=== PATIENT | female | born 1965 | race Two or more races ===

== ENCOUNTER 2024-08-25 13:39 | Outpatient (AMB) | payer MEDICAID, SELFPAY ==
[2024-08-25 13:49] VITALS: BP 111/73; PULSE 82; RESP 17; TEMP 36.7; O2SAT 97; BMI 49.9
--- NOTE | 2024-08-25 13:49 | ACNOTE_ITS ---
Vital Signs 08/25/24 13:49 Height 1.47 m Height Method Stated Weight 107.955 kg Weight Measurement Method Standing Scale BMI 49.9 BP 111/73 Blood Pressure Source Automatic Cuff Blood Pressure Location Left Upper Arm Position Sitting Respiration 17 Pulse 82 Pulse Source Monitor Temp 98.0 F Temp Source Oral Pulse Oximetry (%) 97 Oxygen Delivery Method Room Air Allergies/Meds Allergies & Medications Allergies diclofenac Allergy (Severe, Verified 08/25/24 13:49) Difficulty Breathing IBUPROFEN Allergy (Uncoded 08/25/24 13:49) Chest Pain Medication Reconciliation acetaminophen 500 mg tablet (Tylenol Extra Strength) 500 mg PO Q6H PRN 03/19/24 [History Confirmed 08/25/24] acetaminophen 500 mg capsule 500 mg PO Q6H PRN pain 1 month #120 caps 04/06/24 [Rx Confirmed 08/25/24] simvastatin 20 mg tablet 20 mg PO QPM #30 tabs 04/06/24 [Rx Confirmed 08/25/24] rosuvastatin 10 mg tablet 10 mg PO QDAY 1 month #30 tabs 05/12/24 [Rx Confirmed 08/25/24] blood sugar diagnostic (Accu-Chek Guide test strips) #100 ea 07/14/24 [Rx Confirmed 08/25/24] blood-glucose meter (Accu-Chek Guide Glucose Meter) #1 ea 07/14/24 [Rx Confirmed 08/25/24] semaglutide 3 mg tablet (Rybelsus) 3 mg PO QDAY 30 days #30 tabs 07/14/24 [Rx Confirmed 08/25/24] lancets 23 gauge (Acti-Alberto Lancets) #200 ea 07/21/24 [Rx Confirmed 08/25/24] semaglutide 7 mg tablet (Rybelsus) 7 mg PO QDAY #30 tabs 08/25/24 [Rx] MA Intake Visit Data Collection New Patient or Established: Established Patient (seen at [facility] within 3 years) Seen by Clinical Staff ONLY (RN/MA): No Pain Present Currently: No Pain scale:: 0 Pain Scale Used: Casarez-Ugarte/Numerical PCP or OBGYN visit in last 3 months: Yes Do You Feel Safe at Home: Yes Authorities Contacted: N/A Smoking Status Smoking Status: Never smoker Immunization / Flu Flu Vaccine in the Last 12 Months: No Flu Vaccine Exclusion Criteria: No Exclusion Criteria Past Medical History Past Medical History CARDIAC: Positive Hypercholesterolemia Social History SMOKING STATUS: Smoking status: Never smoker ALCOHOL: Alcohol Intake: Never Patient Portal Questionaires Social History Tobacco History Smoking Status: Never smoker Alcohol History Alcohol Intake: Never Domestic Abuse History Do You Feel Safe at Home: Yes Review of Systems Report any current symptoms Only answer those that you have currently: Past Medical History Past Medical History Have you ever been diagnosed with any of the following: Cardiology Problems Hypercholesterolemia: Yes History of Present Illness HPI Narrative [place]-speaking 59F with obesity BMI>50, HLD, S/p cholecystectomy, s/p partial hysterectomy secondary to uterine tumor removal (2005), R knee OA presents to the clinic today for follow up metformin medication for weight loss. Patient follows up with Dr Morris who is preparing patient for R. OA surgery upon weight loss. She received cortisone knee injections by Dr. Morris in the past. Patient has mild right knee pain. She continues to eat vegetables, tuna, chicken, and fruits like strawberries and blueberries. She lost a total of 11 pounds but lost her Rybelsus prescription and is requesting higher dose because she was tolerating the lower dose well. She endorses feeling tired initially with Rybelsus, but not anymore. She will be going to her PCP for ophthalmology referral. Patient denies headache, fever, chills, chest pain, palpitation, shortness of breath, dizziness, nausea, vomiting, or diarrhea. Review of Systems Review of Systems Systems Reviewed: All systems reviewed, normal except as documented Objective/Exam Narrative Physical exam: GENERAL: middle-aged female with markedly elevated BMI, Cane next to her. HEENT: NC/AT. Moist mucosa. Eyes open, symmetrical, & clear CARDIO: Heart RRR, no obvious murmurs/rubs . PULM: Room air. No noted coughing/dyspnea. Lungs CTA B/L, No wheezing, no crackles GI: Abdomen large, soft, nondistended, no masses noted, ++BS NEURO: A&Ox3. lna grossly intact, moves extremities x4 SKIN/MSK/EXT: B/L no edema. 2+ Dorsalis pedis present B/L. Assessment & Plan Diagnosis / Problem List (1) Diabetes mellitus type 2, noninsulin dependent: Status: Acute Assessment & Plan: Patient is requesting a higher dose of Rybelsus. She lost her prescription 2 weeks ago. Gained .5kg since last visit. She has not been as physically active, stopped water sports because she cannot afford gym membership. Plan: -A1c, fasting glucose, microalbumin: creatinine, CBC and CMP -Rybelsus 3gm daily increased to 7gm daily (2) Morbid obesity due to excess calories: Status: Acute Assessment & Plan: Patient failed to lose any weight since her previous clinic visit. She has stopped doing daily exercise. Continues to eat vegetables and protein. Plan: -Continue protein and vegetable diet -Recommend exercise regularly -f/up in 1.5 month Orders: Orders Ambulatory Hemoglobin A1C 08/25/24 E11.9 - Type 2 diabetes mellitus without complications Microalbumin, Ur Rnd w Creat 08/25/24 E11.9 - Type 2 diabetes mellitus without complications CBC 08/25/24 Comprehensive Metabolic Panel 08/25/24 Glucose,Fasting 08/25/24 Additional Assessment Attending note: I, Ricardo Reese MD, attest that I was physically present for the arellano portions of the service and evaluated the patient with the resident and I reviewed and discussed the case with the resident and agree with the resident's findings and plans of care as documented above. Ricardo Reese MD Physician Billing Established Patient Established Patient: E/M Level 3-CPT 11162 Office Procedures [facility] Level of Care Nursing/Assessment Patient Status: Established Patient Nursing Assessment/Reassessment: Medication Reconciliation, Update PMH in EMR and Vital Signs Coordination of Care: Complex Care and Chronic Disease 1-5, Education Complex Pt/Fam and Staff clarify orders Established Patient Charge Established Patient Point Assignment: 85 Established Patient Point Charge: EP Level 3 (80-115)
== END 2024-08-25 15:33 | disposition home or self-care (01) ==
LOC: HODAHC 13:39
PROVIDERS: Supervising Provider Internal Medicine; Visit Provider Student in an Organized Health Care Education/Training Program
DX: E11.9 Type 2 diabetes mellitus without complications (principal); Z79.84 Long term (current) use of oral hypoglycemic drugs; E66.01 Morbid (severe) obesity due to excess calories; Z68.43 Body mass index [BMI] 50.0-59.9, adult; Z71.3 Dietary counseling and surveillance
CPT/HCPCS: 99213; G0463

== ENCOUNTER 2024-10-19 13:42 | Outpatient (AMB) | payer MEDICAID, SELFPAY ==
[2024-10-19 13:57] VITALS: BP 122/80; PULSE 95; RESP 18; TEMP 36.1; O2SAT 97; BMI 48.7
--- NOTE | 2024-10-19 13:57 | PD.ORTHCLVIS ---
Vital signs 10/19/24 13:57 Height 1.47 m Height Method Stated Weight 105.29 kg Weight Measurement Method Standing Scale BMI 48.7 BP 122/80 Blood Pressure Source Automatic Cuff Blood Pressure Location Right Upper Arm Position Sitting Respiration 18 Pulse 95 Pulse Source Monitor Temp 96.9 F Temp Source Temporal Artery Scan Pulse Oximetry (%) 97 Oxygen Delivery Method Room Air Med/Allergies Allergies & Medications Allergies diclofenac Allergy (Severe, Verified 10/19/24 13:58) Difficulty Breathing IBUPROFEN Allergy (Uncoded 10/19/24 13:58) Chest Pain Medication Reconciliation acetaminophen 500 mg tablet (Tylenol Extra Strength) 500 mg PO Q6H PRN 03/19/24 [History Confirmed 10/19/24] acetaminophen 500 mg capsule 500 mg PO Q6H PRN pain 1 month #120 caps 04/06/24 [Rx Confirmed 10/19/24] simvastatin 20 mg tablet 20 mg PO QPM #30 tabs 04/06/24 [Rx Confirmed 10/19/24] rosuvastatin 10 mg tablet 10 mg PO QDAY 1 month #30 tabs 05/12/24 [Rx Confirmed 10/19/24] blood sugar diagnostic (Accu-Chek Guide test strips) #100 ea 07/14/24 [Rx Confirmed 10/19/24] blood-glucose meter (Accu-Chek Guide Glucose Meter) #1 ea 07/14/24 [Rx Confirmed 10/19/24] lancets 23 gauge (Acti-Alberto Lancets) #200 ea 07/21/24 [Rx Confirmed 10/19/24] loratadine 10 mg tablet 10 mg PO QDAY 10/19/24 [History Confirmed 10/19/24] semaglutide 0.25 mg or 0.5 mg (2 mg/3 mL) subcutaneous pen injector (Ozempic) 0.25 mg subcut QWEEK 10/19/24 [History Confirmed 10/19/24] Exam Exam Patient is in no acute distress and is cooperative with the examination today. Breathing is nonlabored. Patient has a normal mood and affect. Bilateral extremities were evaluated and demonstrates sensation intact to light touch. Palpable pedal pulses are present. No significant edema is present. Bilateral hips were examined. The patient has no pain with log roll of the hips. Internal rotation to 30 degrees and external rotation to 30 degrees is painless. Negative FADIR. Left knee was examined today. The left knee is in reasonable alignment. Range of motion from 0-120 degrees. Knee is stable to varus and valgus as well as AP translation with <5mm. Patient has a negative McMurrays. There is no pain with patellofemoral compression and no crepitus noted. The knee is nontender to palpation. The right knee was also examined. The right knee is in [varus] alignment. Range of motion from [0-115] degrees. Knee is stable to varus and valgus as well as AP translation with <5mm. Patient has a [negative] McMurrays. There is [no] pain with patellofemoral compression and [no] crepitus noted. The knee is [tender] to palpation [medially]. X-rays demonstrate complete obliteration of the joint space medially. There is varus arthritis and varus deformity Assessment and Plan Problem List (1) Pain in right knee: Status: Acute (2) Arthritis of right knee: Status: Acute Plan: Patient is a 58-year-old female with right knee pain and right knee arthritis. We discussed nonoperative and operative options.She is severe arthritis of both knees. We discussed weight loss. She would like a right knee injection today. Recommend knee cortisone injections as patient would like to proceed with conservative treatment at this time. The risks and benefits of the procedure were reviewed with the patient and patient gave verbal consent to continue with the procedure. Procedure: performed by Dr. Morris Using sterile technique the right knee was thoroughly prepped with alcohol, and approximately 1 cc of Kenalog 40 mg/mL and 4 cc of 1% lidocaine was injected into each knee without resistance into the medial tibial femoral joint space. The patient tolerated the procedure well.. Office Procedures [facility] Level of Care Nursing/Assessment Patient Status: Established Patient Nursing Assessment/Reassesment: Medication Reconciliation, Update PMH in EMR and Vital Signs Coordination of Care: Complex Care and Chronic Disease 1-5, Education Complex Pt/Fam, Consent,records obtained, informed consent, Results/Orders obtained and Staff clarify orders Special Needs: Language special needs Established Patient Charge Established Patient Point Assignment: 95 Established Patient Point Charge: EP Level 3 (80-115) Surgical Proc/IM SQ injection Major Surgical Procedure: Yes (KNEE INJECTION ) Medication Given Medication Given Medication Given: Yes Documented Dose Given: 4 Route: Infiitration Medication Given Medication Given Medication Given: Yes Documented Dose Given: 1 Route: Infiitration Office Meds Xylocaine 10 mg/mL (1 %) injection solution Performing Provider: Ronny Morris MD Performing Location: [facility] Administered by: Ronny Morris MD on 10/19/24 14:22 Dose Route Admin Location Dispensed Lot Number Expiration Date [facility] [employer] Officer 20 mL Infiltration 20 mL [id number] FRESENIUS KA triamcinolone acetonide 40 mg/mL suspension for injection Performing Provider: Ronny Morris MD Performing Location: [facility] Administered by: Ronny Morris MD on 10/19/24 14:22 Dose Route Admin Location Dispensed Lot Number Expiration Date [facility] [employer] Officer 40 mg intra-articular KNEE 1 mL [id number] 01/27/26 3711-4364-91 TEVA PARENTERAL MA Intake Visit Data Collection New Patient or Established: Established Patient (seen at [facility] within 3 years) Reason for Visit:: F/U WEIGHTLOSS Seen by Clinical Staff ONLY (RN/MA): No Verbal consent obtained for Telemed visit?: No Stores Laborer Required: Yes PCP or OBGYN visit in last 3 months: Yes Hx Now: No Do You Feel Safe at Home: Yes Authorities Contacted: N/A Questionairres Past Medical History Past Medical History Have you ever been diagnosed with any of the following: Cardiology Problems Hypercholesterolemia: Yes Subjective Visit Visit for: follow up visit and knee Immunization / Flu Flu Vaccine in the Last 12 Months: Yes Flu Vaccine Exclusion Criteria: No Exclusion Criteria and Already Received History of Present Illness Chief complaint: right knee pain Daphne is a pleasant 58-year-old female with right knee pain and right knee arthritis. She has had pain for quite a while. She is morbidly obese. She has not had any anti-inflammatories or injections. She reports that she is allergic to anti-inflammatories and had an anaphylactic reaction Pain Pain level (0-10): 10 Pain duration: ALL DAY Pain location: anterior Pain quality: sharp Pain timing: increases with activity Associated signs & symptoms: numbness (LEG) Ambulatory data Ambulatory device: cane Treatments Improvement with previous injections: No Improvement with PT: No Improvement with NSAIDS: no Review of Systems Review of Systems: All systems negative unless otherwise noted in HPI.
== END 2024-10-19 14:14 | disposition home or self-care (01) ==
PROVIDERS: Supervising Provider Orthopaedic Surgery Adult Reconstructive Orthopaedic Surgery; Visit Provider Orthopaedic Surgery Adult Reconstructive Orthopaedic Surgery
DX: M25.561 Pain in right knee (principal); M17.0 Bilateral primary osteoarthritis of knee; E78.00 Pure hypercholesterolemia, unspecified; E66.01 Morbid (severe) obesity due to excess calories; Z68.42 Body mass index [BMI] 45.0-49.9, adult
CPT/HCPCS: 20610; 99213; J3301; J3490; G0463

== ENCOUNTER 2025-02-10 13:02 | Outpatient (AMB) | payer MEDICAID, SELFPAY ==
--- NOTE | 2025-02-10 13:33 | PD.ORTHCLVIS ---
Vital signs 02/10/25 13:34 Height 1.47 m Height Method Stated Weight 103.022 kg Weight Measurement Method Standing Scale BMI 47.7 BP 126/77 Blood Pressure Source Automatic Cuff Blood Pressure Location Right Upper Arm Position Sitting Respiration 17 Pulse 78 Pulse Source Monitor Temp 98.3 F Temp Source Temporal Artery Scan Pulse Oximetry (%) 97 Oxygen Delivery Method Room Air Med/Allergies Allergies & Medications Allergies diclofenac Allergy (Severe, Verified 02/10/25 13:35) Difficulty Breathing IBUPROFEN Allergy (Uncoded 02/10/25 13:35) Chest Pain Medication Reconciliation acetaminophen 500 mg tablet (Tylenol Extra Strength) 500 mg PO Q6H PRN 03/19/24 [History Confirmed 02/10/25] acetaminophen 500 mg capsule 500 mg PO Q6H PRN pain 1 month #120 caps 04/06/24 [Rx Confirmed 02/10/25] simvastatin 20 mg tablet 20 mg PO QPM #30 tabs 04/06/24 [Rx Confirmed 02/10/25] rosuvastatin 10 mg tablet 10 mg PO QDAY 1 month #30 tabs 05/12/24 [Rx Confirmed 02/10/25] blood sugar diagnostic (Accu-Chek Guide test strips) #100 ea 07/14/24 [Rx Confirmed 02/10/25] blood-glucose meter (Accu-Chek Guide Glucose Meter) #1 ea 07/14/24 [Rx Confirmed 02/10/25] lancets 23 gauge (Acti-Alberto Lancets) #200 ea 07/21/24 [Rx Confirmed 02/10/25] loratadine 10 mg tablet 10 mg PO QDAY 10/19/24 [History Confirmed 02/10/25] semaglutide 0.25 mg or 0.5 mg (2 mg/3 mL) subcutaneous pen injector (Ozempic) 0.25 mg subcut QWEEK 10/19/24 [History Confirmed 02/10/25] Exam Exam Patient is in no acute distress and is cooperative with the examination today. Breathing is nonlabored. Patient has a normal mood and affect. Bilateral extremities were evaluated and demonstrates sensation intact to light touch. Palpable pedal pulses are present. No significant edema is present. Bilateral hips were examined. The patient has no pain with log roll of the hips. Internal rotation to 30 degrees and external rotation to 30 degrees is painless. Negative FADIR. Left knee was examined today. The left knee is in reasonable alignment. Range of motion from 0-120 degrees. Knee is stable to varus and valgus as well as AP translation with <5mm. Patient has a negative McMurrays. There is no pain with patellofemoral compression and no crepitus noted. The knee is nontender to palpation. The right knee was also examined. The right knee is in [varus] alignment. Range of motion from [0-115] degrees. Knee is stable to varus and valgus as well as AP translation with <5mm. Patient has a [negative] McMurrays. There is [no] pain with patellofemoral compression and [no] crepitus noted. The knee is [tender] to palpation [medially]. X-rays demonstrate complete obliteration of the joint space medially. There is varus arthritis and varus deformity Assessment and Plan Problem List (1) Pain in right knee: Status: Acute (2) Arthritis of right knee: Status: Acute Plan: Patient is a 58-year-old female with right knee pain and right knee arthritis. We discussed nonoperative and operative options.She is severe arthritis of both knees. We discussed weight loss. She would like a right knee injection today. Recommend knee cortisone injections as patient would like to proceed with conservative treatment at this time. The risks and benefits of the procedure were reviewed with the patient and patient gave verbal consent to continue with the procedure. Procedure: performed by Dr. Morris Using sterile technique the right knee was thoroughly prepped with alcohol, and approximately 1 cc of Kenalog 40 mg/mL and 4 cc of 1% lidocaine was injected into each knee without resistance into the medial tibial femoral joint space. The patient tolerated the procedure well.. Office Procedures GNS Level of Care Nursing/Assessment Patient Status: Established Patient Nursing Assessment/Reassesment: Medication Reconciliation, Update PMH in EMR and Vital Signs Coordination of Care: Complex Care and Chronic Disease 1-5, Education Complex Pt/Fam, Consent,records obtained, informed consent, Results/Orders obtained and Staff clarify orders Special Needs: Language special needs (SWEDISH ) Established Patient Charge Established Patient Point Assignment: 95 Established Patient Point Charge: EP Level 3 (80-115) Surgical Proc/IM SQ injection Major Surgical Procedure: Yes (KNEE INJECTION) Medication Given Medication Given Medication Given: Yes Documented Dose Given: 4 Route: Infiitration Medication Given Medication Given Medication Given: Yes Documented Dose Given: 1 Route: Infiitration Office Meds Xylocaine 10 mg/mL (1 %) injection solution Performing Provider: Ronny Morris MD Performing Location: [facility] Administered by: Ronny Morris MD on 02/10/25 14:22 Dose Route Admin Location Dispensed Lot Number Expiration Date [place] Furn[employer] Helper 20 mL Infiltration 20 mL [id number] 03/28/28 16629-692-66 FR[facility] [facility] triamcinolone acetonide 40 mg/mL suspension for injection Performing Provider: Ronny Morris MD Performing Location: [facility] Administered by: Ronny Morris MD on 02/10/25 14:22 Dose Route Admin Location Dispensed Lot Number Expiration Date [facility] Furnace Helper 40 mg intra-articular KNEE 1 mL [id number] 09/27/26 4804-1579-53 TEVA PARENTERAL MA Intake Visit Data Collection New Patient or Established: Established Patient (seen at [facility] within 3 years) Reason for Visit:: F/U WEIGHTLOSS Seen by Clinical Staff ONLY (RN/MA): No Verbal consent obtained for Telemed visit?: No Road Roller Operator Hot Mix Required: Yes PCP or OBGYN visit in last 3 months: Yes Hx Now: No Do You Feel Safe at Home: Yes Authorities Contacted: N/A Questionairres Past Medical History Past Medical History Have you ever been diagnosed with any of the following: Cardiology Problems Hypercholesterolemia: Yes Subjective Visit Visit for: follow up visit and knee Immunization / Flu Flu Vaccine in the Last 12 Months: Yes Flu Vaccine Exclusion Criteria: No Exclusion Criteria and Already Received History of Present Illness Chief complaint: right knee pain Daphne is a pleasant 58-year-old female with right knee pain and right knee arthritis. She has had pain for quite a while. She is morbidly obese. She has tried cortisone injections. She reports that she is allergic to anti-inflammatories and had an anaphylactic reaction Pain Pain level (0-10): 10 Pain duration: ALL DAY Pain location: anterior Pain quality: sharp Pain timing: increases with activity Associated signs & symptoms: numbness (LEG) Ambulatory data Ambulatory device: cane Treatments Improvement with previous injections: No Improvement with PT: No Improvement with NSAIDS: no Review of Systems Review of Systems: All systems negative unless otherwise noted in HPI.
[2025-02-10 13:34] VITALS: BP 126/77; PULSE 78; RESP 17; TEMP 36.8; O2SAT 97; BMI 47.7
== END 2025-02-10 13:43 | disposition home or self-care (01) ==
LOC: HODSRG 13:02
PROVIDERS: PCP Student in an Organized Health Care Education/Training Program; Referring Provider Student in an Organized Health Care Education/Training Program; Supervising Provider Orthopaedic Surgery Adult Reconstructive Orthopaedic Surgery; Visit Provider Orthopaedic Surgery Adult Reconstructive Orthopaedic Surgery
DX: M25.561 Pain in right knee (principal); M17.0 Bilateral primary osteoarthritis of knee; E78.00 Pure hypercholesterolemia, unspecified; E66.01 Morbid (severe) obesity due to excess calories; Z68.42 Body mass index [BMI] 45.0-49.9, adult
CPT/HCPCS: 20610; 99213; J3301; J3490; G0463

== ENCOUNTER 2025-04-06 09:46 | Emergency (ER) | payer MEDICAID, SELFPAY ==
[2025-04-06 10:16] VITALS: BP 123/85; PULSE 73; RESP 18; TEMP 36.8; O2SAT 98; BMI 48.4
--- NOTE | 2025-04-06 10:58 | XR_ITS ---
Examination: Ribs, left, with PA chest, 5 views Technique: Chest PA, RIBS AP, RPO, LPO, AP coned lower ribs 5 views Exam date and time: April 06, 2025 1123 hours INDICATIONS: Left-sided rib pain beginning 2 days ago no trauma Findings: Normal heart size No pneumothorax. Moderate osteopenia No acute rib fractures No cortical bone destruction involving the ribs IMPRESSION: No active disease in the chest No acute rib fractures
--- NOTE | 2025-04-06 11:03 | EDNOTE_ITS ---
ED General RME/HPI General Chief complaint: General Adult/Misc Complain Stated complaint: Left rib pain X 3 days Time Seen by Provider: 04/06/25 10:10 Source: patient Arrival date/time: 04/06/25 09:46 . This is a 59-year-old female who presents to the emergency department complaints of left rib pain. Patient states she had a stumble however did not fall and hit the edge of a table on the left side of her rib. She has had intermittent pain for the last 3 days. She is requesting x-ray to rule out fracture. Has not taken any medication at home for her symptoms. No other symptoms reported no shortness of breath no chest pain. Mode of arrival: ambulatory Related Data Home Medications ?Medication ?Instructions ?Recorded ?Confirmed acetaminophen 500 mg tablet 500 mg PO Q6H PRN 03/19/24 02/10/25 (Tylenol Extra Strength) loratadine 10 mg tablet 10 mg PO QDAY 10/19/2402/10 semaglutide 0.25 mg or 0.5 mg (2 0.25 mg subcut QWEEK 10/19/24 02/10/25 mg/3 mL) subcutaneous pen injector (Ozempic) Previous Rx's ?Medication ?Instructions ?Recorded acetaminophen 500 mg capsule 500 mg PO Q6H PRN pain 1 month 04/06/24 #120 caps simvastatin 20 mg tablet 20 mg PO QPM #30 tabs rosuvastatin 10 mg tablet 10 mg PO QDAY 1 month #30 ta bs 05/12/24 blood sugar diagnostic (Accu-Chek #100 ea 07/14/24 Guide test strips) blood-glucose meter (Accu-Chek #1 ea 07/14/24 Guide Glucose Meter) lancets 23 gauge (Acti-Alberto #200 ea 07/21/24 Lancets) Allergies Allergy/AdvReac Type Severity Reaction Status Date / Time diclofenac Allergy Severe Difficulty Verified 04/06/25 09:53 Breathing IBUPROFEN Allergy Chest Pain Uncoded 04/06/25 09:53 Review of Systems Review of Systems Systems Reviewed: All systems reviewed, normal except as documented Narrative Review of Systems: Gen: No fever, no chills, no weight loss EYES: No discharge, no visual changes, no pain HEENT: No ear pain, no congestion, no sore throat PULM: No shortness of breath, no cough, no congestion, + left rib pain CV: No chest pain, no dyspnea on exertion, no palpitations GI: No nausea, no vomiting, no diarrhea, no pain, no constipation : No frequency, no urgency, no dysuria Musc/skel: No joint pain, no back pain Skin: No rash Psyc: No hallucinations, no depression Heme/Lymph: No easy bleeding or bruising tendencies Neuro: No weakness, no headache ED Exam Narrative Physical exam: General: Sittiing in Exam table in no acute distress, answering questions appropriately HENT: normocephalic, atraumatic, EOMI, PERRLA, moist mucous membranes Chest: chest wall is nontender, _left lateral rib mid tenderness palpation. No crepitus. Cardiac: regular rate and rhythm, normal S1 and S2, no murmurs, rubs, or gallops, capillary refill ?2 seconds Pulmonary: clear to auscultation bilaterally, no wheezing, crackles, or rhonchi Abdominal: active bowel sounds, soft, nontender, nondistended Neuro: A&OX3, CN II-XII intact, sensation grossly intact bilaterally in UE and LE. Skin: no rashes, no ecchymosis Ext: no lower extremity edema Course Quality Measures none Orders Category Date Time Status XR ribs LT min 3V w CXR1V Stat Exams 04/06/25 10:58 Completed Vital Signs Vital signs: Vital Signs Temperature 98.2 F 04/06/25 10:16 Pulse Rate 73 04/06/25 10:16 Respiratory Rate 18 04/06/25 10:16 Blood Pressure 123/85 H 04/06/25 10:16 Pulse Oximetry (%) 98 04/06/25 10:16 Oxygen Delivery Method Room Air 04/06/25 10:16 Discharge Plan Plan Patient Disposition: HOME (Self Care) Patient condition on transfer: Stable Prescriptions/Referrals Prescriptions/Med Rec: No Action simvastatin 20 mg tablet 20 mg PO QPM Qty: 30 2RF acetaminophen 500 mg capsule 500 mg PO Q6H PRN (Reason: pain) 30 Days Qty: 120 2RF rosuvastatin 10 mg tablet 10 mg PO QDAY 30 Days Qty: 30 5RF Ozempic 0.25 mg or 0.5 mg (2 mg/3 mL) pen injector 0.25 mg subcut QWEEK Rx Instructions: for 4 weeks loratadine 10 mg tablet 10 mg PO QDAY acetaminophen [Tylenol Extra Strength] 500 mg tablet 500 mg PO Q6H PRN (DME) blood-glucose meter [Accu-Chek Guide Glucose Meter] [facility] [place] See Rx Instructions .Route Qty: 1 4RF Rx Instructions: As directed once daily (DME) Accu-Chek Guide test strips Strip See Rx Instructions .Route Qty: 100 4RF Rx Instructions: As directed (DME) Acti-Alberto Lancets 23 gauge misc See Rx Instructions .Route Qty: 200 3RF Rx Instructions: As directed once daily Referrals: Danielle Power FNP-C [Primary Care Provider] - In 1 week Problem List Clinical Impression: Contusion of rib on left side Patient/Caregiver Discharge Instructions Discharge Activity: activity as tolerated Education Materials: ED Contusion, Rib Additional Instructions: X-ray demonstrates no fracture. - Make sure you follow-up with your primary doctor. - Take [id number] Tylenol ibuprofen as directed for pain. Return to the emergency department with any worsening symptoms any condition. Print Language: Albanian Stand Alone Forms: [employer] Info., Patient Portal Info Letter LANIE/STACY Supervising Physician LANIE/STACY Supervising Physician: Dr. Davey [facility] Narrative [facility] hospital course: 59-year-old female here for complaints of left mid rib pain. No signs of distress. No hypoxia. Vital signs stable. Patient is worried requesting x-ray. To rule out fracture reports she will be doing exercise and swimming in the pool and has had pain once to reassure there is no fracture on the rib. X-ray was obtained no fractures to ribs. Most likely rib contusion. Advised to follow-up with PCP return if any worsening symptoms. Clinical Information Provided by none Medical Records Reviewed [facility] Meds/Rx Considered, not Ordered Describe details: Pain medication Labs/Rad/Tests considered, not Ordered Describe details: Examination: Ribs, left, with PA chest, 5 views Technique: Chest PA, RIBS AP, RPO, LPO, AP coned lower ribs 5 views Exam date and time: April 06, 2025 1123 hours INDICATIONS: Left-sided rib pain beginning 2 days ago no trauma Findings: Normal heart size No pneumothorax. Moderate osteopenia No acute rib fractures No cortical bone destruction involving the ribs IMPRESSION: No active disease in the chest No acute rib fractures Chronic Illness/Social Conditions which may negatively complicate care or outcome(s)-explain: None or not applicable EKG EKG not done Lab Interpretation Labs: none Imaging Imaging interpretation: interpreted by me Provider imaging interpretation(s): Examination: Ribs, left, with PA chest, 5 views Technique: Chest PA, RIBS AP, RPO, LPO, AP coned lower ribs 5 views Exam date and time: April 06, 2025 1123 hours INDICATIONS: Left-sided rib pain beginning 2 days ago no trauma Findings: Normal heart size No pneumothorax. Moderate osteopenia No acute rib fractures No cortical bone destruction involving the ribs IMPRESSION: No active disease in the chest No acute rib fractures Radiology reports / interpretation(s): Examination: Ribs, left, with PA chest, 5 views Technique: Chest PA, RIBS AP, RPO, LPO, AP coned lower ribs 5 views Exam date and time: April 06, 2025 1123 hours INDICATIONS: Left-sided rib pain beginning 2 days ago no trauma Findings: Normal heart size No pneumothorax. Moderate osteopenia No acute rib fractures No cortical bone destruction involving the ribs IMPRESSION: No active disease in the chest No acute rib fractures Medication Administration(s) none Diagnosis Differential diagnosis: Rib contusion, chest contusion, rib pain, bruising. Most likely dx, and/or detailed dx discussion: Rib contusion Dispositon Disposition: Discharge Home
== END 2025-04-06 12:44 | disposition home or self-care (01) ==
PROVIDERS: Emergency Provider Emergency Medicine
DX: S20.212A Contusion of left front wall of thorax, initial encounter (principal); X58.XXXA Exposure to other specified factors, initial encounter
CPT/HCPCS: 71101; 99283

== ENCOUNTER → 2025-05-11 | Outpatient (CLI) | payer MEDICAID, SELFPAY ==
--- NOTE | 2025-05-11 09:45 | XR_ITS ---
Examination: Screening digital mammography, bilateral Computer aided detection 3-D breast Tomosynthesis, bilateral Date and time of exam: May 11, 2025 0923 hours Compared to mammograms dating to January 03, 2016 Indication: Screening Technique: Nonmagnified MLO, CC views of the breasts to been obtained, reconstructed from 3-D Tomosynthesis images. R2 computer aided detection program utilized for evaluation of suspicious masses and/or abnormal calcifications. 3-D Tomosynthesis images obtained. Findings: Scattered areas of fibroglandular density Benign calcifications. No interval suspicious masses Impression: BI-RADS category II: Benign Findings. Recommend 1 year follow-up mammogram.
== END | disposition home or self-care (01) ==
DX: Z12.31 Encounter for screening mammogram for malignant neoplasm of breast (principal); R92.323 Mammographic fibroglandular density, bilateral breasts; R92.1 Mammographic calcification found on diagnostic imaging of breast
CPT/HCPCS: 77063; 77067

== ENCOUNTER 2025-06-28 13:48 | Outpatient (AMB) | payer MEDICAID, SELFPAY ==
--- NOTE | 2025-06-28 14:02 | PD.ORTHCLVIS ---
Vital signs 06/28/25 14:03 Height 1.52 m Height Method Stated Weight 96.275 kg Weight Measurement Method Standing Scale BMI 41.4 BP 115/72 Blood Pressure Source Automatic Cuff Blood Pressure Location Left Upper Arm Position Sitting Respiration 19 Pulse 84 Pulse Source Monitor Temp 97.7 F Temp Source Temporal Artery Scan Pulse Oximetry (%) 96 Oxygen Delivery Method Room Air Med/Allergies Allergies & Medications Allergies diclofenac Allergy (Severe, Verified 06/28/25 14:04) Difficulty Breathing IBUPROFEN Allergy (Uncoded 06/28/25 14:04) Chest Pain Medication Reconciliation acetaminophen 500 mg tablet (Tylenol Extra Strength) 500 mg PO Q6H PRN 03/19/24 [History Confirmed 06/28/25] acetaminophen 500 mg capsule 500 mg PO Q6H PRN pain 1 month #120 caps 04/06/24 [Rx Confirmed 06/28/25] simvastatin 20 mg tablet 20 mg PO QPM #30 tabs 04/06/24 [Rx Confirmed 06/28/25] rosuvastatin 10 mg tablet 10 mg PO QDAY 1 month #30 tabs 05/12/24 [Rx Confirmed 06/28/25] blood sugar diagnostic (Accu-Chek Guide test strips) #100 ea 07/14/24 [Rx Confirmed 06/28/25] blood-glucose meter (Accu-Chek Guide Glucose Meter) #1 ea 07/14/24 [Rx Confirmed 06/28/25] lancets 23 gauge (Acti-Alberto Lancets) #200 ea 07/21/24 [Rx Confirmed 06/28/25] loratadine 10 mg tablet 10 mg PO QDAY 10/19/24 [History Confirmed 06/28/25] semaglutide 0.25 mg or 0.5 mg (2 mg/3 mL) subcutaneous pen injector (Ozempic) 0.25 mg subcut QWEEK 10/19/24 [History Confirmed 06/28/25] Exam Exam Patient is in no acute distress and is cooperative with the examination today. Breathing is nonlabored. Patient has a normal mood and affect. Bilateral extremities were evaluated and demonstrates sensation intact to light touch. Palpable pedal pulses are present. No significant edema is present. Bilateral hips were examined. The patient has no pain with log roll of the hips. Internal rotation to 30 degrees and external rotation to 30 degrees is painless. Negative FADIR. Left knee was examined today. The left knee is in reasonable alignment. Range of motion from 0-120 degrees. Knee is stable to varus and valgus as well as AP translation with <5mm. Patient has a negative McMurrays. There is no pain with patellofemoral compression and no crepitus noted. The knee is nontender to palpation. The right knee was also examined. The right knee is in [varus] alignment. Range of motion from [0-115] degrees. Knee is stable to varus and valgus as well as AP translation with <5mm. Patient has a [negative] McMurrays. There is [no] pain with patellofemoral compression and [no] crepitus noted. The knee is [tender] to palpation [medially]. X-rays demonstrate complete obliteration of the joint space medially. There is varus arthritis and varus deformity Assessment and Plan Problem List (1) Pain in right knee: Status: Acute (2) Arthritis of right knee: Status: Acute Plan: Patient is a 58-year-old female with right knee pain and right knee arthritis. We discussed nonoperative and operative options.She is severe arthritis of both knees. We discussed weight loss. She would like a right knee injection today. Recommend knee cortisone injection as patient would like to proceed with conservative treatment at this time. The risks and benefits of the procedure were reviewed with the patient and patient gave verbal consent to continue with the procedure. Procedure: performed by Dr. Morris Using sterile technique the Right knee was thoroughly prepped with alcohol, and approximately 1 cc of Depo-Medrol 80mg/mL and 4 cc of 0.2% ropivacaine was injected without resistance into the medial tibial femoral joint space. The patient tolerated the procedure. Office Procedures GNS Level of Care Nursing/Assessment Patient Status: Established Patient Nursing Assessment/Reassesment: Medication Reconciliation, Update PMH in EMR and Vital Signs Coordination of Care: Complex Care and Chronic Disease 1-5, Education Complex Pt/Fam, Consent,records obtained, informed consent, Lab and Imaging orders, Results/Orders obtained and Staff clarify orders Special Needs: Language special needs Established Patient Charge Established Patient Point Assignment: 110 Established Patient Point Charge: EP Level 3 (80-115) Surgical Proc/IM SQ injection Minor Surgical Procedure: Yes Medication Given Medication Given Medication Given: Yes Documented Dose Given: 1 Route: Infiitration Medication Given Medication Given Medication Given: Yes Documented Dose Given: 4 Route: Infiitration Office Meds methylprednisolone acetate 80 mg/mL suspension for injection Performing Provider: Ronny Morris MD Performing Location: [facility] Administered by: Ronny Morris MD on 06/28/25 14:16 Dose Route Admin Location Dispensed Lot Number Expiration Date Package NDC [employer] Supervisor 80 mg intra-articular 1 mL [id number] [employer] ropivacaine (PF) 2 mg/mL (0.2 %) injection solution Performing Provider: Ronny Morris MD Performing Location: [facility] Administered by: Ronny Morris MD on 06/28/25 14:16 Dose Route Admin Location Dispensed Lot Number Expiration Date Package NDC [employer] Floor Pan Placing Supervisor 20 mL Infiltration 20 mL [id number] [facility] Intake Visit Data Collection New Patient or Established: Established Patient (seen at [facility] within 3 years) Reason for Visit:: 3MTH L KNEE INJ Seen by Clinical Staff ONLY (RN/MA): No Verbal consent obtained for Telemed visit?: No Third Loader Required: Yes PCP or OBGYN visit in last 3 months: Yes Hx Now: No Do You Feel Safe at Home: Yes Authorities Contacted: N/A Questionairres Past Medical History Past Medical History Have you ever been diagnosed with any of the following: Cardiology Problems Hypercholesterolemia: Yes Subjective Visit Visit for: follow up visit, knee and injections Immunization / Flu Flu Vaccine in the Last 12 Months: Yes Flu Vaccine Exclusion Criteria: No Exclusion Criteria and Already Received History of Present Illness Chief complaint: right knee pain Daphne is a pleasant 58-year-old female with right knee pain and right knee arthritis. She has had pain for quite a while. She is morbidly obese. She has tried cortisone injections. She reports that she is allergic to anti-inflammatories and had an anaphylactic reaction. The last injection lasted for approximately 3 months. Personal History Red flag PMH: BMI BMI Counceling provided: Yes Pain Pain level (0-10): 10 Pain duration: ALL DAY Pain location: anterior Pain quality: sharp Pain timing: increases with activity Associated signs & symptoms: numbness (LEG) Ambulatory data Ambulatory device: cane Treatments Improvement with previous injections: No Improvement with PT: No Improvement with NSAIDS: no Review of Systems Review of Systems: All systems negative unless otherwise noted in HPI.
[2025-06-28 14:03] VITALS: BP 115/72; PULSE 84; RESP 19; TEMP 36.5; O2SAT 96; BMI 41.4
== END 2025-06-28 14:24 | disposition home or self-care (01) ==
LOC: HODSRG 13:48
PROVIDERS: PCP Student in an Organized Health Care Education/Training Program; Referring Provider Student in an Organized Health Care Education/Training Program; Supervising Provider Orthopaedic Surgery Adult Reconstructive Orthopaedic Surgery; Visit Provider Orthopaedic Surgery Adult Reconstructive Orthopaedic Surgery
DX: M25.561 Pain in right knee (principal); M17.11 Unilateral primary osteoarthritis, right knee; E78.00 Pure hypercholesterolemia, unspecified; E66.01 Morbid (severe) obesity due to excess calories; Z71.3 Dietary counseling and surveillance; Z68.41 Body mass index [BMI] 40.0-44.9, adult
CPT/HCPCS: 20610; 99213; J1010; J2795; G0463

== ENCOUNTER 2025-07-14 09:31 | Emergency (ER) | payer MEDICAID, SELFPAY ==
[2025-07-14 09:45] VITALS: BP 149/76; PULSE 71; RESP 18; TEMP 36.4; O2SAT 98; BMI 46.3
--- NOTE | 2025-07-14 09:58 | XR_ITS ---
Examination: Right elbow 3 views Technique: Elbow AP, oblique, lateral 3 views Exam date and time: July 14, 2025, 0958 hours INDICATIONS: Patient fell today with injury to the elbow, elbow pain FINDINGS: Acute comminuted fractures of radial head and neck Large elbow effusion No foreign body IMPRESSION: Acute comminuted fractures of radial head and neck, angulation at the radial neck fracture site
--- NOTE | 2025-07-14 09:58 | XR_ITS ---
Examination: Humerus 2 views right Technique: Humerus, AP lateral 2 views Date and time of exam: July 14, 2025, 0958 hours INDICATIONS: Patient fell today with injury to the arm, arm pain FINDINGS: No shoulder fracture or dislocation Shaft of the humerus intact IMPRESSION: Humerus appears intact
--- NOTE | 2025-07-14 09:58 | XR_ITS ---
Examination: Shoulder, right, 3 views Technique: Shoulder AP internal rotation, AP external rotation, Y view shoulder, 3 views Exam date and time : July 14, 2025, 0958 hours INDICATIONS: Patient fell today with injury to shoulder, shoulder pain. FINDINGS: Moderate Glenohumeral joint No shoulder fracture or dislocation Calcific tendinitis. Moderate osteoarthritis acromioclavicular joint IMPRESSION: No shoulder fracture or dislocation
--- NOTE | 2025-07-14 11:28 | PD.EDUPEX ---
Upper Extremity Injury RME/HPI General Chief Complaint: Extremity Injury, Upper Stated Complaint: R SHOULDER INJURY POST FALL TODAY Time Seen by Provider: 07/14/25 09:40 Arrival date/time: 07/14/25 09:31 60-year-old female presents to the emergency department today for complaints of right upper arm pain after fall today patient reports that it was a trip and fall reports no head or neck injury reports no dizziness prior to the fall Limitations: no limitations Related Data Home Medications ?Medication ?Instructions ?Recorded ?Confirmed acetaminophen 500 mg tablet 500 mg PO Q6H PRN 03/19/24 06/28/25 (Tylenol Extra Strength) loratadine 10 mg tablet 10 mg PO QDAY 10/19/24 06/28/25 semaglutide 0.25 mg or 0.5 mg (2 0.25 mg subcut QWEEK 10/19/24 06/28/25 mg/3 mL) subcutaneous pen injector (Ozempic) Previous Rx's ?Medication ?Instructions ?Recorded acetaminophen 500 mg capsule 500 mg PO Q6H PRN pain 1 month 04/06/24 #120 caps simvastatin 20 mg tablet 20 mg PO QPM #30 tabs 04/06/24 rosuvastatin 10 mg tablet 10 mg PO QDAY 1 month #30 tabs 05/12/24 blood sugar diagnostic (Accu-Chek #100 ea 07/14/24 Guide test strips) blood-glucose meter (Accu-Chek #1 ea 07/14/24 Guide Glucose Meter) lancets 23 gauge (Acti-Alberto #200 ea 07/21/24 Lancets) hydrocodone 5 mg-acetaminophen 325 1 tab PO BID PRN pain #10 tabs 07/14/25 mg tablet Allergies Allergy/AdvReac Type Severity Reaction Status Date / Time diclofenac Allergy Severe Difficulty Verified 07/14/25 09:33 Breathing IBUPROFEN Allergy Chest Pain Uncoded 07/14/25 09:33 Review of Systems Review of Systems Systems Reviewed: All systems reviewed, normal except as documented Constitutional Constitutional: Reports system reviewed and no additional complaints, except as documented, Denies fever(s) and Denies headache(s) Eyes Eyes: Reports system reviewed and no additional complaints, except as documented and Denies blurry vision ENT Ears, Nose, Mouth, and Throat: Reports system reviewed and no additional complaints, except as documented, Denies headache(s), Denies nasal congestion and Denies nasal discharge Cardiovascular Cardiovascular: Reports system reviewed and no additional complaints, except as documented, Denies chest pain and Denies dyspnea Respiratory Respiratory: Reports system reviewed and no additional complaints, except as documented, Denies chest congestion, Denies cough and Denies dyspnea Gastrointestinal Gastrointestinal: Reports system reviewed and no additional complaints, except as documented and Denies abdominal pain Musculoskeletal Musculoskeletal: Reports system reviewed and no additional complaints, except as documented, Reports arthralgias, Denies deformity, Denies numbness, Reports stiffness and Denies tingling Integumentary/Breasts Skin/Breast: Reports system reviewed and no additional complaints, except as documented and Denies rash Neurologic Neurologic: Reports system reviewed and no additional complaints, except as documented, Reports as per HPI, Denies headache(s), Denies numbness and Denies tingling Past Medical History Past Medical History CARDIAC: Positive Hypercholesterolemia Social History SMOKING STATUS: Never smoker SUBSTANCE USE: does not use ED Exam General Limitations: Present no limitations General appearance: Present alert and in no apparent distress Head Head exam: Present atraumatic, normocephalic and normal inspection Eye Eye exam: Present normal appearance, PERRL and EOMI; Absent conjunctival injection ENT ENT exam: Present normal exam, normal oropharynx and mucous membranes moist Neck Neck exam: Present normal inspection, full ROM and trachea midline Chest Chest inspection: Present normal inspection and symmetric chest wall rise Respiratory Respiratory exam: Present normal lung sounds bilaterally Cardiovascular Cardiovascular exam: Present regular rate, normal rhythm and normal heart sounds Abdominal Exam Abdominal exam: Present soft and normal bowel sounds Extremities Exam Extremities exam: Present tenderness, normal capillary refill and joint swelling (Mild swelling right elbow) Back Exam Back exam: Present normal inspection and full ROM Neurological Exam Neurological exam: Present alert, oriented X3 and CN II-XII intact Psychiatric Psychiatric exam: Present normal affect and normal mood Skin Skin exam: Present warm, dry, intact and normal color Course Quality Measures none Orders Category Date Time Status Splint / Immobilizer STAT Care 07/14/25 11:30 Completed XR elbow comp RT min 3V Stat Exams 07/14/25 09:58 Completed XR humerus RT min 2V Stat Exams 07/14/25 09:58 Completed XR shoulder RT min 2V Stat Exams 07/14/25 09:58 Completed Vital Signs Vital signs: Vital Signs Temperature 97.5 F 07/14/25 09:45 Pulse Rate 71 07/14/25 09:45 Respiratory Rate 18 07/14/25 09:45 Blood Pressure 149/76 H 07/14/25 09:45 Pulse Oximetry (%) 98 07/14/25 09:45 Oxygen Delivery Method Room Air 07/14/25 09:45 O2 saturation 98% room air with normal limits PROCEDURES: Splint Fabrication: Clinician Made Type: Posterior Elbow Reason for Splint: Optimal Positioning, Pain Management and Minimize Deformities Circulation Distal to Splint: Yes Movement Distal to Splint: Yes Senation Distal to Splint: Yes Tolerance: Tolerates Well Extremity Injury MDM Narrative MDM Narrative:: 60-year-old female presents to the emergency department today for complaints of right upper arm pain after fall today patient reports that it was a trip and fall reports no head or neck injury reports no dizziness prior to the fall On exam patient has tenderness right upper arm mostly in the right elbow no deformity noted Imaging of the right arm obtained patient has fracture Acute comminuted fractures of radial head and neck, angulation at the radial neck fracture site Has patient has no bruising has mild swelling no deformity noted Patient placed in a posterior elbow splint and a sling Patient given pain medication Explained to the patient the importance of following up with orthopedics to soon as possible for further evaluation and possible treatment. Patient data External records reviewed:: [facility] previous records Clinical information provided by:: patient Social determinants that could affect healthcare access:: none Patient has the following chronic illnesses:: History How is presenting disease/condition affected by chronic disease/condition?: uneffected by Evaluation data The following diagnostics were reviewed and interpreted by me:: radiology exam(s) Lab and/or radiology exams considered but not ordered:: Radiology obtained Interpretation Summary: Reviewed by me Medications / Prescriptions Medications or Prescriptions considered but not ordered:: Given Medication administrations:: Given Consultations Consultation(s) initiated? (list below): No Diagnosis Upper Extremity Injury Differential Diagnosis: dislocation of shoulder, fracture of humerus and other Most likely diagnosis given after review of the tests above:: Level fracture Admission Indicated Admission indicated?: not indicated Admission Request Was there a request for admission?: No Disposition Plan Disposition Plan: Discharge Discharge Attestation Discharge Attestation: The patient and all family members were given an opportunity to ask questions and understood the discharge instructions. Discharge instructions specifically effects, indications for sooner follow up or return to the emergency department, and the expected course of current diagnosis. Patient condition: Stable Discharge Plan Plan Patient Disposition: HOME (Self Care) Discharge Disposition comment: Stable Prescriptions/Referrals Prescriptions/Med Rec: New hydrocodone-acetaminophen 5-325 mg tablet 1 tab PO BID MDD 10 PRN (Reason: pain) Qty: 10 0RF No Action simvastatin 20 mg tablet 20 mg PO QPM Qty: 30 2RF acetaminophen 500 mg capsule 500 mg PO Q6H PRN (Reason: pain) 30 Days Qty: 120 2RF rosuvastatin 10 mg tablet 10 mg PO QDAY 30 Days Qty: 30 5RF Ozempic 0.25 mg or 0.5 mg (2 mg/3 mL) pen injector 0.25 mg subcut QWEEK Rx Instructions: for 4 weeks loratadine 10 mg tablet 10 mg PO QDAY acetaminophen [Tylenol Extra Strength] 500 mg tablet 500 mg PO Q6H PRN (DME) blood-glucose meter [Accu-Chek Guide Glucose Meter] Misc See Rx Instructions .Route Qty: 1 4RF Rx Instructions: As directed once daily (DME) Accu-Chek Guide test strips Strip See Rx Instructions .Route Qty: 100 4RF Rx Instructions: As directed (DME) Acti-Alberto Lancets 23 gauge misc See Rx Instructions .Route Qty: 200 3RF Rx Instructions: As directed once daily Referrals: Lety ([employer]),DORIS Polo [Primary Care Provider, Emergency Medicine] - In 1 week Problem List Clinical Impression: Closed fracture of right elbow Patient/Caregiver Discharge Instructions Education Materials: ED Elbow Fracture Additional Instructions: Please follow up with your primary care doctor in the next 24-48hrs for any worsening symptoms return here immediately You must follow with your PCP in order get a referral to orthopedist for worsening symptoms or concerns return immediately Print Language: Czech Stand Alone Forms: Marcela Award Info., Patient Portal Info Letter PA/PLATE MAKER Supervising Physician LANIE/STACY Supervising Physician: Dr. machuca
== END 2025-07-14 12:52 | disposition home or self-care (01) ==
PROVIDERS: PCP Nurse Practitioner Primary Care
DX: S42.461A Displaced fracture of medial condyle of right humerus, initial encounter for closed fracture (principal); S42.441A Displaced fracture (avulsion) of medial epicondyle of right humerus, initial encounter for closed fracture; W01.0XXA Fall on same level from slipping, tripping and stumbling without subsequent striking against object, initial encounter
CPT/HCPCS: 29105; 73030; 73060; 73080; 99283

== ENCOUNTER 2025-07-19 17:54 | Emergency (ER) | payer MEDICAID, SELFPAY ==
[2025-07-19 17:55] VITALS: BMI 43.1
[2025-07-19 18:12] VITALS: BP 157/80; PULSE 90; RESP 18; TEMP 36.8; O2SAT 96
--- NOTE | 2025-07-19 18:37 | EDNOTE_ITS ---
Upper Extremity Injury RME/HPI General Chief Complaint: Extremity Injury, Upper Stated Complaint: RT ELBOW PAIN Time Seen by Provider: 07/19/25 18:32 Arrival date/time: 07/19/25 17:54 60F with no significant PMH presents to ED with R elbow splint out of place that was done 1 week ago for recent diagnosis here for elbow fx. Patient has outpatient ortho appt already. Limitations: no limitations Related Data Home Medications ?Medication ?Instructions ?Recorded ?Confirmed acetaminophen 500 mg tablet 500 mg PO Q6H PRN 03/19/24 06/28/25 (Tylenol Extra Strength) loratadine 10 mg tablet 10 mg PO QDAY 10/19/2406/28 semaglutide 0.25 mg or 0.5 mg (2 0.25 mg subcut QWEEK 10/19/24 06/28/25 mg/3 mL) subcutaneous pen injector (Ozempic) Previous Rx's ?Medication ?Instructions ?Recorded acetaminophen 500 mg capsule 500 mg PO Q6H PRN pain 1 month 04/06/24 #120 caps simvastatin 20 mg tablet 20 mg PO QPM #30 tabs rosuvastatin 10 mg tablet 10 mg PO QDAY 1 month #30 ta bs 05/12/24 blood sugar diagnostic (Accu-Chek #100 ea 07/14/24 Guide test strips) blood-glucose meter (Accu-Chek #1 ea 07/14/24 Guide Glucose Meter) lancets 23 gauge (Acti-Alberto #200 ea 07/21/24 Lancets) hydrocodone 5 mg-acetaminophen 325 1 tab PO BID PRN pa in #10 tabs 07/14/25 mg tablet Allergies Allergy/AdvReac Type Severity Reaction Status Date / Time diclofenac Allergy Severe Difficulty Verified 07/19/25 17:58 Breathing IBUPROFEN Allergy Chest Pain Uncoded 07/19/25 17:58 Review of Systems Review of Systems Systems Reviewed: All systems reviewed, normal except as documented Musculoskeletal Musculoskeletal: Reports as per HPI and Reports arthralgias Past Medical History Past Medical History CARDIAC: Positive Hypercholesterolemia Social History SMOKING STATUS: Never smoker SUBSTANCE USE: does not use ED Exam General Limitations: Present no limitations General appearance: Present alert and in no apparent distress Head Head exam: Present atraumatic Neck Neck exam: Present normal inspection, full ROM and trachea midline Chest Chest inspection: Present normal inspection and symmetric chest wall rise Expanded Upper Extremity Exam Elbow exam: Present other (out of place splint on R) Hand exam: Present full ROM Neurological Exam Neurological exam: Present alert and oriented X3 Psychiatric Psychiatric exam: Present normal affect and normal mood Skin Skin exam: Present warm, dry, intact and normal color Course Quality Measures none Orders Category Date Time Status Splint / Immobilizer STAT Care 07/19/25 18:32 Active Vital Signs Vital signs: Vital Signs Temperature 98.2 F 07/19/25 18:12 Pulse Rate 90 07/19/25 18:12 Respiratory Rate 18 07/19/25 18:12 Blood Pressure 157/80 H 07/19/25 18:12 Pulse Oximetry (%) 96 07/19/25 18:12 Oxygen Delivery Method Room Air 07/19/25 18:12 O2 at 96% on RA and WNLs Extremity Injury MDM Narrative MDM Narrative:: 60F with no significant PMH presents to ED with R elbow splint out of place that was done 1 week ago for recent diagnosis here for elbow fx. Patient has outpatient ortho appt already. Physical exam reveals splint out of place on R elbow. Distal ROM and skin color normal. Patient is afebrile, calm, and alert. Splint/sling redone. Patient data External records reviewed:: [facility] previous records Clinical information provided by:: patient Social determinants that could affect healthcare access:: none Patient has the following chronic illnesses:: none How is presenting disease/condition affected by chronic disease/condition?: no chronic disease Evaluation data The following diagnostics were reviewed and interpreted by me:: other (specify) (none) Lab and/or radiology exams considered but not ordered:: not ordered Interpretation Summary: n/a Medications / Prescriptions Medications or Prescriptions considered but not ordered:: not ordered Medication administrations:: n/a Consultations Consultation(s) initiated? (list below): No Diagnosis Upper Extremity Injury Differential Diagnosis: dislocation of shoulder, fracture of humerus, fracture of clavicle and other (elbow fx) Most likely diagnosis given after review of the tests above:: elbow fx Admission Indicated Admission indicated?: not indicated Admission Request Was there a request for admission?: No Disposition Plan Disposition Plan: Discharge Discharge Attestation Discharge Attestation: The patient and all family members were given an opportunity to ask questions and understood the discharge instructions. Discharge instructions specifically effects, indications for sooner follow up or return to the emergency department, and the expected course of current diagnosis. Patient condition: Stable Discharge Plan Plan Patient Disposition: HOME (Self Care) Discharge Disposition comment: Stable Prescriptions/Referrals Prescriptions/Med Rec: No Action simvastatin 20 mg tablet 20 mg PO QPM Qty: 30 2RF acetaminophen 500 mg capsule 500 mg PO Q6H PRN (Reason: pain) 30 Days Qty: 120 2RF rosuvastatin 10 mg tablet 10 mg PO QDAY 30 Days Qty: 30 5RF Ozempic 0.25 mg or 0.5 mg (2 mg/3 mL) pen injector 0.25 mg subcut QWEEK Rx Instructions: for 4 weeks loratadine 10 mg tablet 10 mg PO QDAY acetaminophen [Tylenol Extra Strength] 500 mg tablet 500 mg PO Q6H PRN (DME) blood-glucose meter [Accu-Chek Guide Glucose Meter] Misc See Rx Instructions .Route Qty: 1 4RF Rx Instructions: As directed once daily (DME) Accu-Chek Guide test strips Strip See Rx Instructions .Route Qty: 100 4RF Rx Instructions: As directed (DME) Acti-Alberto Lancets 23 gauge misc See Rx Instructions .Route Qty: 200 3RF Rx Instructions: As directed once daily hydrocodone-acetaminophen 5-325 mg tablet 1 tab PO BID MDD 10 PRN (Reason: pain) Qty: 10 0RF Problem List Clinical Impression: Closed fracture of right elbow Patient/Caregiver Discharge Instructions Education Materials: ED Elbow Fracture Additional Instructions: Please follow-up with PCP within 24-48 hours and return immediately if symptoms worsen. Make sure to go to ortho appt. Print Language: Slovenian Stand Alone Forms: Patient Portal Info Letter LANIE/STACY Supervising Physician LANIE/STACY Supervising Physician: Dr. Jennings
== END 2025-07-19 19:23 | disposition home or self-care (01) ==
LOC: SERX 19:15
PROVIDERS: Emergency Provider Emergency Medicine; PCP Family Medicine
DX: S42.441A Displaced fracture (avulsion) of medial epicondyle of right humerus, initial encounter for closed fracture (principal); S42.461A Displaced fracture of medial condyle of right humerus, initial encounter for closed fracture; X58.XXXA Exposure to other specified factors, initial encounter
CPT/HCPCS: 29105; 99281